=== PATIENT | female | born 1970 | race Two or more races ===

== ENCOUNTER 2024-10-20 12:43 | Emergency (ER) | payer MEDICAID, SELFPAY ==
[2024-10-20 12:53] VITALS: BP 145/86; PULSE 75; RESP 18; TEMP 37.1; O2SAT 98; BMI 36.6
--- NOTE | 2024-10-20 13:10 | EDNOTE_ITS ---
<Statement entered by Kelsie Baker MD - 10/20/24 16:21> As co-signing physician, I was present and available for consult prn. I concur with the plan and care as documented by the midlevel provider. Lower Extremity Injury RME/HPI General Chief Complaint: Extremity Injury, Lower Stated Complaint: BILATERAL KNEE PAIN Time Seen by Provider: 10/20/24 12:58 Arrival date/time: 10/20/24 12:43 54-year-old female presents the emergency department complaints of bilateral knee pain and hip pain patient reports history of osteoarthritis patient reports no fever nausea or vomiting patient ports no saddle anesthesia or loss of bowel or bladder patient reports that she took a [place] from her which made her pain significantly better Limitations: no limitations Related Data Home Medications ?Medication ?Instructions ?Recorded ?Confirmed acetaminophen 500 mg capsule 500 mg PO Q6H PRN Pain 10/22/22 10/22/22 omega-3 acid ethyl esters 1 gram 1 cap PO BID 10/22/22 10/22/22 capsule (Lovaza) pravastatin 40 mg tablet 40 mg PO QDAY 10/22/22 10/22/22 Previous Rx's ?Medication ?Instructions ?Recorded hydrocodone 5 mg-acetaminophen 325 1 tab PO Q6H PRN pain #20 tabs 10/24/22 mg tablet hydrocodone 5 mg-acetaminophen 325 1 tab PO BID PRN pain #10 tabs 10/20/24 mg tablet meloxicam 7.5 mg tablet 7.5 mg PO QDAY 7 days #7 tabs 10/20/24 Allergies Allergy/AdvReac Type Severity Reaction Status Date / Time No Known Allergies Allergy Verified 10/22/22 08:29 Review of Systems Review of Systems Systems Reviewed: All systems reviewed, normal except as documented Constitutional Constitutional: Reports system reviewed and no additional complaints, except as documented, Denies fever(s) and Denies headache(s) Eyes Eyes: Reports system reviewed and no additional complaints, except as documented and Denies blurry vision ENT Ears, Nose, Mouth, and Throat: Reports system reviewed and no additional complaints, except as documented, Denies headache(s), Denies nasal congestion and Denies nasal discharge Cardiovascular Cardiovascular: Reports system reviewed and no additional complaints, except as documented, Denies chest pain and Denies dyspnea Respiratory Respiratory: Reports system reviewed and no additional complaints, except as documented, Denies chest congestion, Denies cough and Denies dyspnea Gastrointestinal Gastrointestinal: Reports system reviewed and no additional complaints, except as documented and Denies abdominal pain Musculoskeletal Musculoskeletal: Reports system reviewed and no additional complaints, except as documented, Denies abnormal gait, Reports arthralgias, Denies deformity and Denies joint swelling Integumentary/Breasts Skin/Breast: Reports system reviewed and no additional complaints, except as documented and Denies rash Neurologic Neurologic: Reports system reviewed and no additional complaints, except as documented, Reports as per HPI, Denies abnormal gait and Denies headache(s) Past Medical History Past Medical History NEUROLOGIC: Negative Neurological Disorders or Seizures CARDIAC: Positive Hypercholesterolemia; Negative Cardiac Disorders or Congestive Heart Failure RESPIRATORY: Negative Chronic Obstructive Pulmonary Disease (COPD) or Asthma GASTROINTESTINAL: Positive Gall Bladder Disease (lap shaheed) GENITOURINARY: Negative Genitourinary Disorders or Renal Disease REPRODUCTIVE: Positive Pelvic Inflammatory Disease and Previous Pregnancies MUSCULOSKELETAL: Positive Musculoskeletal Disorders and Arthritis ENT: Positive Ear Infection ENDOCRINE: Negative Endocrine Disorders, Diabetes Mellitus Type 1 or Diabetes Mellitus Type 2 HEMATOLOGIC: Negative Blood Disorders or Sickle Cell Disease OTHER HISTORY: Negative Autoimmune Disease, Blood Transfusions, Blood Transfusion Reaction, Anesthesia Reactions, MRSA, Clostridium Difficile or Cancer Family History FAMILY HISTORY: Positive Family Cardiac Disorders (mother) and Family Surgery (mother); Negative Family Psychiatric Problems, Family Respiratory Disorders, Family Gastrointestinal Problems, Family Cancer or Family Anesthesia Reaction Surgical History SURGICAL: Negative Cardiac Surgery, Endocrine Surgery, Ear Surgery, Nephrectomy, Joint Replacement, Neurologic Surgery or Mastectomy Social History SMOKING STATUS: Never smoker SUBSTANCE USE: does not use ED Exam General Limitations: Present no limitations General appearance: Present alert and in no apparent distress Head Head exam: Present atraumatic Eye Eye exam: Present normal appearance, PERRL and EOMI ENT ENT exam: Present normal exam, normal oropharynx and mucous membranes moist Neck Neck exam: Present normal inspection, full ROM and trachea midline Chest Chest inspection: Present normal inspection and symmetric chest wall rise Respiratory Respiratory exam: Present normal lung sounds bilaterally Cardiovascular Cardiovascular exam: Present regular rate, normal rhythm and normal heart sounds Abdominal Exam Abdominal exam: Present soft and normal bowel sounds Extremities Exam Extremities exam: Present normal inspection, full ROM, tenderness and normal capillary refill; Absent pedal edema, joint swelling or calf tenderness Back Exam Back exam: Present normal inspection and full ROM Neurological Exam Neurological exam: Present alert, oriented X3 and CN II-XII intact Psychiatric Psychiatric exam: Present normal affect and normal mood Skin Skin exam: Present warm, dry, intact and normal color Course Quality Measures none Orders Category Date Time Status Ketorolac Inj [Toradol Inj] Med 10/20/24 13:04 Discontinued 30 mg IM X1 ONE Vital Signs Vital signs: Vital Signs Temperature 98.8 F 10/20/24 12:53 Pulse Rate 75 10/20/24 12:53 Respiratory Rate 18 10/20/24 12:53 Blood Pressure 145/86 H 10/20/24 12:53 Pulse Oximetry (%) 98 10/20/24 12:53 Oxygen Delivery Method Room Air 10/20/24 12:53 O2 saturation 98% room air within normal limits Extremity Injury, Lower MDM Narrative MDM Narrative:: 54-year-old female presents the emergency department complaints of bilateral knee pain and hip pain patient reports history of osteoarthritis patient reports no fever nausea or vomiting patient reports no saddle anesthesia or loss of bowel or bladder patient reports that she took a [place] from her which made her pain significantly better On exam patient well-appearing patient does not appear ill or toxic and in no acute distress patient walks with steady gait Patient given Toradol here discharge home with [place] and meloxicam Symptoms consistent with osteoarthritis/back pain Patient discharged home in no distress to follow-up with primary care doctor in the next 24 to 48 hours and for any worsening symptoms to return to the ER immediately Patient data External records reviewed:: [facility] previous records Clinical information provided by:: patient Social determinants that could affect healthcare access:: none Patient has the following chronic illnesses:: See history How is presenting disease/condition affected by chronic disease/condition?: caused by Evaluation data The following diagnostics were reviewed and interpreted by me:: radiology exam(s) Lab and/or radiology exams considered but not ordered:: Radiology obtain Interpretation Summary: Reviewed by me Medications / Prescriptions Medications or Prescriptions considered but not ordered:: Given Medication administrations:: Medication Administration History Discontinued Medications Ketorolac Tromethamine (Ketorolac Inj 30 Mg/Ml Vial) 30 mg IM X1 ONE Stop: 10/20/24 13:05 Last Admin: 10/20/24 13:15 Dose: 30 mg Documented By: Given Consultations Consultation(s) initiated? (list below): No Diagnosis Extremity Injury, Lower Differential Diagnosis: other (Hip pain, back pain, leg pain) Most likely diagnosis given after review of the tests above:: Osteoarthritis Admission Indicated Admission indicated?: not indicated Admission Request Was there a request for admission?: No Disposition Plan Disposition Plan: Discharge Discharge Attestation Discharge Attestation: The patient and all family members were given an opportunity to ask questions and understood the discharge instructions. Discharge instructions specifically effects, indications for sooner follow up or return to the emergency department, and the expected course of current diagnosis. Patient condition: Stable Discharge Plan Plan Patient Disposition: HOME (Self Care) Disposition Comment: stable Prescriptions/Referrals Prescriptions/Med Rec: New hydrocodone-acetaminophen 5-325 mg tablet 1 tab PO BID MDD 10 PRN (Reason: pain) Qty: 10 0RF meloxicam 7.5 mg tablet 7.5 mg PO QDAY 7 Days Qty: 7 0RF No Action pravastatin 40 mg Tablet 40 mg PO QDAY acetaminophen 500 mg Capsule 500 mg PO Q6H PRN (Reason: Pain) omega-3 acid ethyl esters [Lovaza] 1 gram Capsule 1 cap PO BID hydrocodone-acetaminophen 5-325 mg tablet 1 tab PO Q6H MDD 5 PRN (Reason: pain) Qty: 20 0RF Problem List Clinical Impression: Arthralgia of both knees, Osteoarthritis Patient/Caregiver Discharge Instructions Education Materials: ED Osteoarthritis Additional Instructions: Please follow up with your primary care doctor in the next 24-48hrs for any worsening symptoms return here immediately Print Language: English Stand Alone Forms: Sophie Award Info., Patient Portal Info Letter PA/REPA[employer] Supervising Physician PA/REPA[employer] Supervising Physician: Dr. baker
[2024-10-20] MEDS: KETOROLAC INJ 30 MG/ML VIAL IM (13:15)
== END 2024-10-20 13:21 | disposition home or self-care (01) ==
LOC: SERX 13:25
PROVIDERS: Emergency Provider Emergency Medicine; PCP Family Medicine
DX: M17.0 Bilateral primary osteoarthritis of knee (principal)
CPT/HCPCS: 96372; 99283; J1885

== ENCOUNTER → 2024-12-02 | Outpatient (CLI) | payer MEDICAID, SELFPAY ==
--- NOTE | 2024-12-02 12:45 | XR_ITS ---
Exam: MRI knee without contrast, right Date and time of exam: December 02, 2024 1408 hours INDICATIONS: Medial anterior knee pain joint burning paresthesias joint locking instability 6 weeks Technique: Multiple axial, coronal, and sagittal sections on the knee have been obtained. T2-Weighted sagittal, fat-suppressed images, TR 3,500, TE 62, T2 weighted coronal fat-saturated images, TR 3,500, TE 62 Proton density sagittal sections, TR 1800, TE 31. T-1 weighted coronal images, TR 524, TE 13.0 Findings: Medial meniscus anterior horn intact. Medial meniscus, body horizontal linear tear communicating inferior articular surface. Posterior horn medial meniscus horizontal linear tears communicating inferior articular surface. Lateral meniscus anterior horn is intact Lateral meniscus, body is intact Posterior horn lateral meniscus is intact Anterior cruciate ligament moderate sprain Posterior cruciate ligament appears intact. Knee effusion is small. Quadriceps and patellar tendons appear intact. There is no evidence of tendinosis. Inflammatory change or fracture of Hoffa's fat pad is not seen. Medial patellar facet demonstrates mild thinning. Lateral patellar facet cartilage demonstrates mild thinning. Trochlear cartilage demonstrates mild thinning. Marrow signal adequate. Medial collateral ligament appears intact. No meniscocapsular separation is seen. Illiotibial band and fibular collateral ligament are intact. Biceps femoris tendons appear intact. Medial femoral condylar articular cartilage demonstrates moderate thinning. Lateral femoral condylar articular cartilage demonstratesmoderate thinning. Tibial plateau cartilage demonstrates moderate thinning. Impression: Horizontal linear tear as body and posterior horn medial meniscus Moderate sprain anterior cruciate ligament
== END | disposition home or self-care (01) ==
PROVIDERS: PCP Nurse Practitioner Family; Referring Provider Nurse Practitioner Family; Visit Provider Nurse Practitioner Family
DX: S83.241A Other tear of medial meniscus, current injury, right knee, initial encounter (principal); S83.511A Sprain of anterior cruciate ligament of right knee, initial encounter; X58.XXXA Exposure to other specified factors, initial encounter
CPT/HCPCS: 73721

== ENCOUNTER → 2024-12-17 | Outpatient (CLI) | payer MEDICAID, SELFPAY ==
--- NOTE | 2024-12-17 14:34 | XR_ITS ---
Examination: Knee bilateral, 8 views Technique: Knee AP, lateral, oblique axial image 40 total 8 views, standing Date and time of exam: December 17, 2024 1517 hours INDICATIONS: Knee pain chronic FINDINGS: Moderate osteopenia Bilateral mild to moderate narrowing medial joint spaces No fracture or dislocation Mild osteoarthritis patellofemoral joints IMPRESSION: Bilateral mild to moderate narrowing medial joint spaces, more severe medial joint space right knee
== END | disposition home or self-care (01) ==
PROVIDERS: PCP Nurse Practitioner Family; Referring Provider Nurse Practitioner Family; Visit Provider Nurse Practitioner Family
DX: M25.862 Other specified joint disorders, left knee (principal); M25.861 Other specified joint disorders, right knee
CPT/HCPCS: 73564

== ENCOUNTER 2025-01-18 13:47 | Outpatient (AMB) | payer MEDICAID, SELFPAY ==
[2025-01-18 14:15] VITALS: BP 115/76; PULSE 71; RESP 18; TEMP 36.3; O2SAT 96; BMI 36.1
--- NOTE | 2025-01-18 14:15 | PD.ORTHCLVIS ---
Vital signs 01/18/25 14:15 Height 1.57 m Height Method Stated Weight 89.074 kg Weight Measurement Method Standing Scale BMI 36.1 BP 115/76 Blood Pressure Source Automatic Cuff Blood Pressure Location Left Upper Arm Position Sitting Respiration 18 Pulse 71 Pulse Source Monitor Temp 97.4 F Temp Source Temporal Artery Scan Pulse Oximetry (%) 96 Oxygen Delivery Method Room Air Med/Allergies Allergies & Medications Allergies AMOXICLLIN Allergy (Uncoded 01/18/25 14:19) RASH Medication Reconciliation omega-3 acid ethyl esters 1 gram capsule (Lovaza) 1 cap PO BID 10/22/22 [History Confirmed 10/22/22] pravastatin 40 mg tablet 40 mg PO QDAY 10/22/22 [History Confirmed 10/22/22] hydrocodone 5 mg-acetaminophen 325 mg tablet 1 tab PO Q6H PRN pain #20 tabs 10/24/22 [Rx] hydrocodone 5 mg-acetaminophen 325 mg tablet 1 tab PO BID PRN pain #10 tabs 10/20/24 [Rx] meloxicam 7.5 mg tablet 7.5 mg PO QDAY #45 tabs 01/18/25 [Rx] Exam Exam Breathing is nonlabored. Patient has a normal mood and affect. Bilateral extremities were evaluated and demonstrates sensation intact to light touch. Palpable pedal pulses are present. No significant edema is present. Bilateral hips were examined. The patient has no pain with log roll of the hips. Internal rotation to 30 degrees and external rotation to 30 degrees is painless. Negative FADIR. Left knee was examined today. The left knee is in reasonable alignment. Range of motion from 0-120 degrees. Knee is stable to varus and valgus as well as AP translation with <5mm. Patient has a negative [place]. There is no pain with patellofemoral compression and no crepitus noted. The knee is nontender to palpation. The right knee was also examined. The right knee is in Neutral alignment. Range of motion from 0-115 degrees. Knee is stable to varus and valgus as well as AP translation with <5mm. Patient has a negative [place]. There is no pain with patellofemoral compression and no crepitus noted. The knee is tender to palpation medially. X-rays demonstrate right knee with preserved joint spaces. These are weightbearing films. There is no osteophytes and no fracture An MRI demonstrates a degenerative horizontal meniscus tear. This is primarily of the posterior horn Assessment and Plan Problem List (1) Right knee meniscal tear: Status: Acute Plan: Patient is a pleasant 54-year-old female with a right knee meniscal tear and mild osteoarthritis. We did discuss that she has a degenerative meniscal tear and that this is typically treated nonoperatively. We recommend anti-inflammatories and an injection. She would like to try a cortisone injection today. Recommend knee cortisone injection as patient would like to proceed with conservative treatment at this time. The risks and benefits of the procedure were reviewed with the patient and patient gave verbal consent to continue with the procedure. Procedure: performed by Dr. Hills Using sterile technique the Right knee was thoroughly prepped with alcohol, and approximately 1 cc of Kenalog 40 mg/mL and 4 cc of 1% lidocaine was injected without resistance into the medial tibial femoral joint space. The patient tolerated the procedure. Office Procedures GNS Level of Care Nursing/Assessment Patient Status: Initial/New Patient Nursing Assessment/Reassesment: Medication Reconciliation, Update PMH in EMR and Vital Signs Coordination of Care: Complex Care and Chronic Disease 1-5, Education Complex Pt/Fam, Consent,records obtained, informed consent, 1 Ins Authorization, Lab and Imaging orders, Results/Orders obtained and Staff clarify orders Special Needs: Language special needs (KOREAN ) New Patient Charge New Patient Point Assignment: 1124 New Patient Point Charge: [employer] Level 4 ([id number]) Surgical Proc/IM SQ injection Major Surgical Procedure: Yes (KNEE INJECTION) Medication Given Medication Given Medication Given: Yes Documented Dose Given: 4 Route: Infiitration Medication Given Medication Given Medication Given: Yes Documented Dose Given: 1 Route: Infiitration Office Meds Xylocaine 10 mg/mL (1 %) injection solution Performing Provider: Remi Hills MD Performing Location: [facility] Administered by: Remi Hills MD on 01/18/25 14:35 Dose Route Admin Location Dispensed Lot Number Expiration Date NDC Library Clerk 20 mL Infiltration 20 mL [id number] 02/24/28 50579-480-40 [facility] triamcinolone acetonide 40 mg/mL suspension for injection Performing Provider: Remi Hills MD Performing Location: [facility] Administered by: Remi Hills MD on 01/18/25 14:35 Dose Route Admin Location Dispensed Lot Number Expiration Date [facility] Library Clerk 40 mg intra-articular KNEE 1 mL [id number] 08/25/26 8108-3237-97 TEVA PARENTERAL [place] Intake Visit Data Collection New Patient or Established: New Patient (never been to [facility]) Reason for Visit:: RT KNEE MENISCUS TEAR Seen by Clinical Staff ONLY (RN/MA): No Deputy Clerk Of [address] [employer] Required: Yes PCP or OBGYN visit in last 3 months: Yes Hx Now: No Do You Feel Safe at Home: Yes Authorities Contacted: N/A Questionairres Past Medical History Past Medical History Have you ever been diagnosed with any of the following: Neurological Problems Seizures: No Cardiology Problems Hypercholesterolemia: Yes Congestive Heart Failure: No Respiratory Problems Chronic Obstructive Pulmonary Disease (COPD): No Asthma: No Smoking: No Smoking Cessation Counseling: No Smoking Exposure: No Stomache/Intestinal Problems Gall Bladder Disease: Yes (lap shaheed) Genital/Urinary Problems Renal Disease: No Reproductive Problems Pelvic Inflammatory Disease: Yes Previous Pregnancies: Yes Musculoskeletal Problems Arthritis: Yes Head,Eye,Nose,Throat Problems Chronic Ear Infections: Yes Endocrine Problems Diabetes Mellitus Type 1: No Diabetes Mellitus Type 2: No Blood Problems Sickle Cell Disease: No Other Problems Blood Transfusions: No Blood Transfusion Reaction: No Anesthesia Reactions: No MRSA: No Clostridium Difficile: No Cancer: No Subjective Visit Visit for: new patient and knee (RT KNEE MENISCUS TEAR ) Immunization / Flu Flu Vaccine in the Last 12 Months: Yes Flu Vaccine Exclusion Criteria: Already Received History of Present Illness Chief complaint: right knee pain Date of injury / onset of symptoms: 10/17/2024 Patient is a 54-year-old female with right knee pain that has been ongoing for a while. She reports the pain is medially. She is wearing a knee brace. She had 1 injection a laterally.She has Tried ibuprofen only Pain Pain level (0-10): 9 Pain duration: 3 MONTHS Pain location: inside (medial) and outside (lateral) Pain quality: sharp Pain timing: night Ambulatory data Ambulatory device: none Walking distance (minutes): 5 Treatments Number of previous injections: 1 Improvement with previous injections: No Number of Physical Therapy sessions: 0 Improvement with NSAIDS: n/a Review of Systems Review of Systems: All systems negative unless otherwise noted in HPI.
== END 2025-01-18 14:55 | disposition home or self-care (01) ==
LOC: HODSRG 13:47
PROVIDERS: PCP Nurse Practitioner Family; Referring Provider Nurse Practitioner Family; Supervising Provider Orthopaedic Surgery Adult Reconstructive Orthopaedic Surgery; Visit Provider Orthopaedic Surgery Adult Reconstructive Orthopaedic Surgery
DX: S83.206A Unspecified tear of unspecified meniscus, current injury, right knee, initial encounter (principal); X58.XXXA Exposure to other specified factors, initial encounter; M17.11 Unilateral primary osteoarthritis, right knee; E78.00 Pure hypercholesterolemia, unspecified
CPT/HCPCS: 20610; 99204; J3301; J3490; G0463

== ENCOUNTER 2025-03-24 14:13 | Outpatient (AMB) | payer MEDICAID, SELFPAY ==
[2025-03-24 14:38] VITALS: BP 129/85; PULSE 67; RESP 18; TEMP 36.8; O2SAT 96; BMI 34.4
--- NOTE | 2025-03-24 14:38 | ORTHONT_ITS ---
Vital signs 03/24/25 14:38 Height 1.57 m Height Method Stated Weight 84.964 kg Weight Measurement Method Standing Scale BMI 34.4 BP 129/85 H Blood Pressure Source Automatic Cuff Blood Pressure Location Right Upper Arm Position Sitting Respiration 18 Pulse 67 Pulse Source Monitor Temp 98.3 F Temp Source Temporal Artery Scan Pulse Oximetry (%) 96 Oxygen Delivery Method Room Air Med/Allergies Allergies & Medications Allergies AMOXICLLIN Allergy (Uncoded 03/24/25 14:38) RASH Medication Reconciliation omega-3 acid ethyl esters 1 gram capsule (Lovaza) 1 cap PO BID 10/22/22 [History Confirmed 03/24/25] pravastatin 40 mg tablet 40 mg PO QDAY 10/22/22 [History Confirmed 03/24/25] hydrocodone 5 mg-acetaminophen 325 mg tablet 1 tab PO Q6H PRN pain #20 tabs 10/24/22 [Rx Confirmed 03/24/25] hydrocodone 5 mg-acetaminophen 325 mg tablet 1 tab PO BID PRN pain #10 tabs 10/20/24 [Rx Confirmed 03/24/25] meloxicam 7.5 mg tablet 7.5 mg PO QDAY #45 tabs 01/18/25 [Rx Confirmed 03/24/25] Exam Exam Breathing is nonlabored. Patient has a normal mood and affect. Bilateral extremities were evaluated and demonstrates sensation intact to light touch. Palpable pedal pulses are present. No significant edema is present. Bilateral hips were examined. The patient has no pain with log roll of the hips. Internal rotation to 30 degrees and external rotation to 30 degrees is painless. Negative FADIR. Left knee was examined today. The left knee is in reasonable alignment. Range of motion from 0-120 degrees. Knee is stable to varus and valgus as well as AP translation with <5mm. Patient has a negative McMurrays. There is no pain with patellofemoral compression and no crepitus noted. The knee is nontender to palpation. The right knee was also examined. The right knee is in Neutral alignment. Range of motion from 0-115 degrees. Knee is stable to varus and valgus as well as AP translation with <5mm. Patient has a negative McMurrays. There is no pain with patellofemoral compression and no crepitus noted. The knee is tender to palpation medially. X-rays demonstrate right knee with preserved joint spaces. These are weightbearing films. There is no osteophytes and no fracture An MRI demonstrates a degenerative horizontal meniscus tear. This is primarily of the posterior horn Assessment and Plan Problem List (1) Right knee meniscal tear: Status: Acute Plan: Patient is a pleasant 54-year-old female with a right knee meniscal tear and mild osteoarthritis. We did discuss that she has a degenerative meniscal tear and that this is typically treated nonoperatively. She has not been doing well with cortisone junctions. We will try physical therapy at this point. Office Procedures GNS Level of Care Nursing/Assessment Patient Status: Established Patient Nursing Assessment/Reassesment: Medication Reconciliation, Update PMH in EMR and Vital Signs Coordination of Care: Complex Care and Chronic Disease 1-5, Education Complex Pt/Fam, Consent,records obtained, informed consent, Results/Orders obtained and Staff clarify orders Special Needs: Language special needs Established Patient Charge Established Patient Point Assignment: 95 Established Patient Point Charge: EP Level 3 (80-115) MA Intake Visit Data Collection New Patient or Established: Established Patient (seen at [facility] within 3 years) Reason for Visit:: WORSENING KNEE PAIN Seen by Clinical Staff ONLY (RN/MA): No Verbal consent obtained for Telemed visit?: No [employer] Required: Yes PCP or OBGYN visit in last 3 months: Yes Hx Now: No Do You Feel Safe at Home: Yes Authorities Contacted: N/A Questionairres Past Medical History Past Medical History Have you ever been diagnosed with any of the following: Neurological Problems Seizures: No Cardiology Problems Hypercholesterolemia: Yes Congestive Heart Failure: No Respiratory Problems Chronic Obstructive Pulmonary Disease (COPD): No Asthma: No Smoking: No Smoking Cessation Counseling: No Smoking Exposure: No Stomache/Intestinal Problems Gall Bladder Disease: Yes (lap shaheed) Genital/Urinary Problems Renal Disease: No Reproductive Problems Pelvic Inflammatory Disease: Yes Previous Pregnancies: Yes Musculoskeletal Problems Arthritis: Yes Head,Eye,Nose,Throat Problems Chronic Ear Infections: Yes Endocrine Problems Diabetes Mellitus Type 1: No Diabetes Mellitus Type 2: No Blood Problems Sickle Cell Disease: No Other Problems Blood Transfusions: No Blood Transfusion Reaction: No Anesthesia Reactions: No MRSA: No Clostridium Difficile: No Cancer: No Subjective Visit Visit for: follow up visit and knee Immunization / Flu Flu Vaccine in the Last 12 Months: No Flu Vaccine Exclusion Criteria: No Exclusion Criteria History of Present Illness Chief complaint: WORSENING KNEE PAIN Date of injury / onset of symptoms: 10/17/2024 Patient is a 54-year-old female with right knee pain that has been ongoing for a while. She reports the pain is medially. She is wearing a knee brace. She had 2 injections bilaterally. She has Tried ibuprofen only Personal History Red flag PMH: BMI BMI Counceling provided: Yes Pain Pain level (0-10): 6 Pain duration: ALL DAY Pain location: inside (medial), outside (lateral), anterior and posterior Pain quality: sharp, dull and aching Pain timing: increases with activity Associated signs & symptoms: none Ambulatory data Ambulatory device: none Walking distance (minutes): 5 Treatments Number of previous injections: 2 Improvement with previous injections: Yes Number of Physical Therapy sessions: 0 Improvement with PT: No Improvement with NSAIDS: no Review of Systems Review of Systems: All systems negative unless otherwise noted in HPI.
== END 2025-03-24 14:52 | disposition home or self-care (01) ==
LOC: HODSRG 14:13
PROVIDERS: PCP Nurse Practitioner Family; Referring Provider Nurse Practitioner Family; Supervising Provider Orthopaedic Surgery Adult Reconstructive Orthopaedic Surgery; Visit Provider Orthopaedic Surgery Adult Reconstructive Orthopaedic Surgery
DX: S83.206D Unspecified tear of unspecified meniscus, current injury, right knee, subsequent encounter (principal); X58.XXXD Exposure to other specified factors, subsequent encounter; M17.11 Unilateral primary osteoarthritis, right knee; E78.00 Pure hypercholesterolemia, unspecified; M25.561 Pain in right knee
CPT/HCPCS: 99213; G0463

== ENCOUNTER 2025-04-20 14:31 | Outpatient (AMB) | payer MEDICAID, SELFPAY ==
[2025-04-20 14:44] VITALS: BP 132/84; PULSE 72; RESP 19; TEMP 36.4; O2SAT 98; BMI 33.7
--- NOTE | 2025-04-20 14:44 | ORTHONT_ITS ---
Vital signs 04/20/25 14:44 Height 1.57 m Height Method Stated Weight 83.092 kg Weight Measurement Method Standing Scale BMI 33.7 BP 132/84 H Blood Pressure Source Automatic Cuff Blood Pressure Location Left Upper Arm Position Sitting Respiration 19 Pulse 72 Pulse Source Monitor Temp 97.6 F Temp Source Temporal Artery Scan Pulse Oximetry (%) 98 Oxygen Delivery Method Room Air Med/Allergies Allergies & Medications Allergies AMOXICLLIN Allergy (Uncoded 04/20/25 14:45) RASH Medication Reconciliation omega-3 acid ethyl esters 1 gram capsule (Lovaza) 1 cap PO BID 10/22/22 [History Confirmed 04/20/25] pravastatin 40 mg tablet 40 mg PO QDAY 10/22/22 [History Confirmed 04/20/25] hydrocodone 5 mg-acetaminophen 325 mg tablet 1 tab PO Q6H PRN pain #20 tabs 10/24/22 [Rx Confirmed 04/20/25] hydrocodone 5 mg-acetaminophen 325 mg tablet 1 tab PO BID PRN pain #10 tabs 10/20/24 [Rx Confirmed 04/20/25] meloxicam 7.5 mg tablet 7.5 mg PO QDAY #45 tabs 01/18/25 [Rx Confirmed 04/20/25] Exam Exam Breathing is nonlabored. Patient has a normal mood and affect. Bilateral extremities were evaluated and demonstrates sensation intact to light touch. Palpable pedal pulses are present. No significant edema is present. Bilateral hips were examined. The patient has no pain with log roll of the hips. Internal rotation to 30 degrees and external rotation to 30 degrees is painless. Negative FADIR. Left knee was examined today. The left knee is in reasonable alignment. Range of motion from 0-120 degrees. Knee is stable to varus and valgus as well as AP translation with <5mm. Patient has a negative McMurrays. There is no pain with patellofemoral compression and no crepitus noted. The knee is nontender to palpation. The right knee was also examined. The right knee is in Neutral alignment. Range of motion from 0-115 degrees. Knee is stable to varus and valgus as well as AP translation with <5mm. Patient has a negative McMurrays. There is no pain with patellofemoral compression and no crepitus noted. The knee is tender to palpation medially. X-rays demonstrate right knee with preserved joint spaces. These are weightbearing films. There is no osteophytes and no fracture An MRI demonstrates a degenerative horizontal meniscus tear. This is primarily of the posterior horn Assessment and Plan Problem List (1) Right knee meniscal tear: Status: Acute Plan: Patient is a pleasant 54-year-old female with a right knee meniscal tear and mild osteoarthritis. We did discuss that she has a degenerative meniscal tear and that this is typically treated nonoperatively. She is insistent that she wants surgery. I would recommend nonoperative treatment for this. Furthermore, she has pain that radiates to her toes and I do not think the degenerative meniscal tear is the cause of her pain. We recommend that she get a second opinion. She did not go to physical therapy. The patient is unhappy because she was told she had a meniscus tear and is demanding surgery. I discussed with her that the pain radiates all the way down to her toes from her back and the knee is unlikely cause of the pain. Furthermore, the MRI report says there is a meniscus tear and it appears to be a degenerative meniscal tear With extrusion. The patient has improved with injections and I will continue with conservative treatment at this time. The patient is not okay with this. I discussed that she should get a second opinion if she wants an arthroscopic surgery. We have called her primary care doctor as well to let Them now. Office Procedures GNS Level of Care Nursing/Assessment Patient Status: Established Patient Nursing Assessment/Reassesment: Medication Reconciliation, Update PMH in EMR and Vital Signs Coordination of Care: Complex Care and Chronic Disease 1-5, Education Complex Pt/Fam, Consent,records obtained, informed consent, Results/Orders obtained and Staff clarify orders Special Needs: Language special needs Established Patient Charge Established Patient Point Assignment: 95 Established Patient Point Charge: EP Level 3 (80-115) MA Intake Visit Data Collection New Patient or Established: Established Patient (seen at [facility] within 3 years) Reason for Visit:: 3 MTH R KNEE INJ F/U Seen by Clinical Staff ONLY (RN/MA): No [employer] Required: Yes PCP or OBGYN visit in last 3 months: Yes Hx Now: No Do You Feel Safe at Home: Yes Authorities Contacted: N/A Questionairres Past Medical History Past Medical History Have you ever been diagnosed with any of the following: Neurological Problems Seizures: No Cardiology Problems Hypercholesterolemia: Yes Congestive Heart Failure: No Respiratory Problems Chronic Obstructive Pulmonary Disease (COPD): No Asthma: No Smoking: No Smoking Cessation Counseling: No Smoking Exposure: No Stomache/Intestinal Problems Gall Bladder Disease: Yes (lap shaheed) Genital/Urinary Problems Renal Disease: No Reproductive Problems Pelvic Inflammatory Disease: Yes Previous Pregnancies: Yes Musculoskeletal Problems Arthritis: Yes Head,Eye,Nose,Throat Problems Chronic Ear Infections: Yes Endocrine Problems Diabetes Mellitus Type 1: No Diabetes Mellitus Type 2: No Blood Problems Sickle Cell Disease: No Other Problems Blood Transfusions: No Blood Transfusion Reaction: No Anesthesia Reactions: No MRSA: No Clostridium Difficile: No Cancer: No Subjective Visit Visit for: follow up visit, knee and injections Immunization / Flu Flu Vaccine in the Last 12 Months: No Flu Vaccine Exclusion Criteria: No Exclusion Criteria History of Present Illness Chief complaint: WORSENING KNEE PAIN Date of injury / onset of symptoms: 10/17/2024 Patient is a 54-year-old female with right knee pain that has been ongoing for a while. She reports the pain is medially. She is wearing a knee brace. She had 2 injections bilaterally. She has Tried ibuprofen only. She reports that she has pain that radiates from the back all the way to the toes. There is assocaited with numbness and tingling. Personal History Red flag PMH: BMI BMI Counceling provided: Yes Pain Pain level (0-10): 8 Pain duration: ALL DAY Pain location: inside (medial) and anterior Pain quality: dull and aching Pain timing: increases with activity Associated signs & symptoms: none Ambulatory data Ambulatory device: none Walking distance (minutes): 5 Treatments Number of previous injections: 2 Improvement with previous injections: No Number of Physical Therapy sessions: 0 Improvement with PT: No Improvement with NSAIDS: no Review of Systems Review of Systems: All systems negative unless otherwise noted in HPI.
== END 2025-04-20 15:01 | disposition home or self-care (01) ==
LOC: HODSRG 14:31
PROVIDERS: PCP Nurse Practitioner Family; Referring Provider Nurse Practitioner Family; Supervising Provider Orthopaedic Surgery Adult Reconstructive Orthopaedic Surgery; Visit Provider Orthopaedic Surgery Adult Reconstructive Orthopaedic Surgery
DX: S83.206D Unspecified tear of unspecified meniscus, current injury, right knee, subsequent encounter (principal); X58.XXXD Exposure to other specified factors, subsequent encounter; M17.11 Unilateral primary osteoarthritis, right knee; M25.561 Pain in right knee; E78.00 Pure hypercholesterolemia, unspecified
CPT/HCPCS: 99213; G0463

== ENCOUNTER → 2025-06-13 | Outpatient (CLI) | payer MEDICAID, SELFPAY ==
--- NOTE | 2025-06-13 11:45 | XR_ITS ---
Examination: Screening digital mammography, bilateral Computer aided detection 3-D breast Tomosynthesis, bilateral Date and time of exam: June 13, 2025 1120 hours Compared to mammograms dating to December 09, 2016 Indication: Screening Technique: Nonmagnified MLO, CC views of the breasts to been obtained, reconstructed from 3-D Tomosynthesis images. R2 computer aided detection program utilized for evaluation of suspicious masses and/or abnormal calcifications. 3-D Tomosynthesis images obtained. Findings: Scattered areas of fibroglandular density. Benign calcifications. No interval suspicious masses Impression: BI-RADS category II: Benign Findings. Recommend 1 year follow-up mammogram.
== END | disposition home or self-care (01) ==
PROVIDERS: PCP Nurse Practitioner Family; Referring Provider Nurse Practitioner Family; Visit Provider Nurse Practitioner Family
DX: Z12.31 Encounter for screening mammogram for malignant neoplasm of breast (principal); R92.323 Mammographic fibroglandular density, bilateral breasts; R92.1 Mammographic calcification found on diagnostic imaging of breast
CPT/HCPCS: 77063; 77067